=== PATIENT | female | born 1975 | race Caucasian/White ===

== ENCOUNTER 2016-03-26 15:37 | Emergency (ER) | payer MEDICAID, OTHER ==
[~2016-03-26] VITALS: Ht 165.1 cm; Wt 81.6 kg
[2016-03-26 16:16] VITALS: BP 122/87
== END 2016-03-27 06:07 | disposition left against medical advice (07) ==
LOC: ER 15:37
DX: R53.1 Weakness (principal); Z53.21 Procedure and treatment not carried out due to patient leaving prior to being seen by health care provider
CPT/HCPCS: 93005